=== PATIENT | female | born 1950 | race Caucasian/White ===

== ENCOUNTER 2020-01-20 20:02 | Emergency (ER) | payer MEDICARE, OTHER ==
[2020-01-20] MEDS ORDERED: MORPHINE 2 MG/ML SYR ONE (21:02)
[2020-01-20] MEDS ORDERED: ONDANSETRON 4 MG/2 ML VIAL ONE (21:02)
[2020-01-20] MEDS ORDERED: FAMOTIDINE 20 MG/2 ML VIAL IV ONE (21:07)
[2020-01-20] MEDS ORDERED: propofoL 200 MG/20 ML VIAL IV ONE (22:57)
[2020-01-20] MEDS ORDERED: NA CHLORIDE 0.9% 500 ML ONE (23:04)
[2020-01-20] MEDS ORDERED: FENTANYL CITR 100 MCG/2 ML ONE (23:20)
--- NOTE | 2020-01-21 01:17 | ER ---
Nurse's Notes [facility] Name: Emilia Javier Age: 69 yrs Sex: Female : 1950 Arrival Date: 01/20/2020 Time: 20:05 Bed 3 Private MD: Diagnosis: Displaced comminuted fracture of shaft of radius, left arm;Fracture of ulna styloid process Presentation: 01/19 20:15 Chief complaint: Spouse and/or significant other states: She was stepping off the side jb4 walk onto the ground and her ankle gave out and she fell on her wrist. 20:15 Coronavirus screen: The patient has NOT traveled to [place] in the past 14 days. Proceed jb4 with normal triage procedures. The patient has NOT had contact with known and/or suspected case of Coronavirus. Proceed with normal triage procedures. Ebola Screen: No symptoms or risks identified at this time. Initial Sepsis Screen: Does the patient meet any 2 criteria? No. Patient's initial sepsis screen is negative. Does the patient have a suspected source of infection? No. Patient's initial sepsis screen is negative. Risk Assessment: Do you want to hurt yourself or someone else? Patient reports no desire to harm self or others. 20:15 Method Of Arrival: Ambulatory jb4 20:15 Acuity: JEREMIAH 3 jb4 Historical: - Allergies: 20:15 Codeine; jb4 - Home Meds: 20:15 Lisinopril Oral [Active]; jb4 - PMHx: 20:15 None; jb4 - PSHx: 20:15 ; jb4 - Immunization history:: Adult Immunizations up to date, Flu vaccine is not up to date. - Social history:: Smoking status: Patient denies any tobacco usage or history of. Patient/guardian denies using alcohol, street drugs. - Family history:: not pertinent. - Hospitalizations: : No recent hospitalization is reported. Screenin:45 Abuse screen: Denies threats or abuse. Denies injuries from another. Nutritional rr5 screening: No deficits noted. Tuberculosis screening: No symptoms or risk factors identified. Fall Risk IV access (20 points). Assessment: 20:15 General: Appears in no apparent distress. uncomfortable, Behavior is calm, cooperative, jb4 appropriate for age. Pain: Complains of pain in left wrist Pain radiates to palmar aspect of left forearm Pain currently is 10 out of 10 on a pain scale. Quality of pain is described as throbbing. Neuro: Level of Consciousness is awake, alert, obeys commands, Oriented to person, place, time, situation. Cardiovascular: Capillary refill < 3 seconds in left fingers Patient's skin is warm and dry. Respiratory: Airway is patent Respiratory effort is even, unlabored, Respiratory pattern is regular, symmetrical. GI: No signs and/or symptoms were reported involving the gastrointestinal system. : No signs and/or symptoms were reported regarding the genitourinary system. EENT: No signs and/or symptoms were reported regarding the EENT system. Derm: Skin is intact, Skin is pink, warm \T\ dry. Musculoskeletal: Range of motion: limited in left wrist. 21:15 Reassessment: Patient appears in no apparent distress at this time. Patient and/or jb4 family updated on plan of care and expected duration. Pain level reassessed. Patient is alert, oriented x 3, equal unlabored respirations, skin warm/dry/pink. Patient states feeling better. 22:13 Reassessment: Patient appears in no apparent distress at this time. Patient and/or jb4 family updated on plan of care and expected duration. Pain level reassessed. Patient is alert, oriented x 3, equal unlabored respirations, skin warm/dry/pink. Pt reports pain is decreased but starting to come back. Conscious sedation consent form signed. 23:00 Reassessment: Patient appears in no apparent distress at this time. Patient and/or jb4 family updated on plan of care and expected duration. Pain level reassessed. Patient is alert, oriented x 3, equal unlabored respirations, skin warm/dry/pink. Conscious sedation started, see flow sheet for further documentation. 01/20 00:00 Reassessment: Patient appears in no apparent distress at this time. Patient and/or jb4 family updated on plan of care and expected duration. Pain level reassessed. Patient is alert, oriented x 3, equal unlabored respirations, skin warm/dry/pink. 01:00 Reassessment: Patient appears in no apparent distress at this time. Patient and/or jb4 family updated on plan of care and expected duration. Pain level reassessed. Patient is alert, oriented x 3, equal unlabored respirations, skin warm/dry/pink. 01:45 Reassessment: Patient appears in no apparent distress at this time. Patient and/or jb4 family updated on plan of care and expected duration. Pain level reassessed. Patient is alert, oriented x 3, equal unlabored respirations, skin warm/dry/pink. Pt reports nausea, provider notified, see MAR for orders. 01:50 Reassessment: Pt and family, verbalized understanding of d/c and follow up jb4 instructions. Assisted out of ED via wheelchair. Cap refill <3 seconds in left fingers. reports pain has decreased. Assisted to vehicle via wheelchair. Vital Signs: 01/19 20:15 BP 184 / 95; Pulse 90; Resp 16; Pulse Ox 97% on R/A; Weight 86.18 kg (R); Height 5 ft. jb4 6 in. (167.64 cm) (R); Pain 10/10; 21:00 BP 172 / 70; Pulse 90; Resp 16; Pulse Ox 96% on R/A; jb4 22:14 BP 146 / 77; Pulse 101; Resp 16; Temp 98.4(O); Pulse Ox 97% on R/A; Pain 7/10; jb4 23:00 BP 165 / 78; Pulse 107; Resp 16; Temp 98.7; Pulse Ox 96% on R/A; jb4 01/20 00:00 BP 150 / 64; Pulse 78; Resp 12; Pulse Ox 97% on R/A; jb4 01/19 20:15 Body Mass Index 30.67 (86.18 kg, 167.64 cm) jb4 01/19 23:00 Conscious sedation started, see flow sheet for further documentation. jb4 ED Course: 20:05 Patient arrived in ED. jg7 20:12 Thanh Aldridge MD is Attending Physician. rn 20:15 Arm band placed on right wrist. jb4 20:15 Patient has correct armband on for positive identification. Bed in low position. Call jb4 light in reach. Side rails up X 1. Pulse ox on. NIBP on. 20:26 Bhaskar Zapata, RN is Primary Nurse. jb4 20:29 XRAY Wrist LEFT 3 view In Process Unspecified. EDMS 20:30 Triage completed. jb4 20:40 Inserted saline lock: 22 gauge in right forearm, using aseptic technique. ,using rr5 aseptic technique. inserted by raul Pinedo. 22:14 Ice pack to injury. jb4 23:35 Assist provider with fracture care of left wrist Fracture is closed. Obvious deformity jb4 is noted. Circulation, motor and sensation is intact. Set up for procedure. Performed by Thanh Aldridge MD Reduced with physical manipulation. Immobilized with Post immobilization, circulation, motor and sensation remain intact. Patient tolerated well. 23:51 XRAY Wrist LEFT 2 view In Process Unspecified. EDMS 01/20 01:15 Les Cano MD is Referral Physician. rn 01:40 IV discontinued, intact, bleeding controlled, No redness/swelling at site. Pressure jb4 dressing applied. Administered Medications: 01/19 21:00 Drug: Zofran (Ondansetron) 4 mg Route: IVP; Site: right forearm; rr5 21:30 Follow up: Response: No adverse reaction [facility] 21:02 Drug: morphine 2 mg {Note: rass 0 .} Route: IVP; Site: right forearm; rr5 21:30 Follow up: Response: No adverse reaction; Pain is decreased; RASS: Alert and Calm (0) [facility] 21:05 Drug: Pepcid 20 mg Route: IVP; Site: right forearm; rr5 21:30 Follow up: Response: No adverse reaction [facility] 23:10 Drug: Propofol 100 mg Route: IVP; Site: right antecubital; [facility] 01/20 00:50 Follow up: Response: No adverse reaction [facility] 01/19 23:20 Drug: Propofol 100 mg Route: IVP; Site: right antecubital; [facility] 01/20 00:50 Follow up: Response: No adverse reaction [facility] 01/19 23:25 Drug: fentaNYL (PF) 50 mcg {Note: rass score -1 due to conscious sedation..} Route: jb4 IVP; Site: right antecubital; 01/20 00:50 Follow up: Response: No adverse reaction; Pain is decreased; RASS: Alert and Calm (0) [facility] 01:30 Drug: morphine 4 mg {Note: Rass score 0.} Route: IVP; Site: right antecubital; 4 01:50 Follow up: Response: No adverse reaction; Pain is decreased; RASS: Alert and Calm (0) [facility] 01:40 Drug: Zofran (Ondansetron) 4 mg Route: PO; 4 01:50 Follow up: Response: No adverse reaction jb4 Outcome: 01:16 Discharge ordered by . rn 01:45 Discharged to home via wheelchair, with family. jb4 01:45 Condition: stable 01:45 Discharge instructions given to patient, family, Instructed on discharge instructions, follow up and referral plans. medication usage, Demonstrated understanding of instructions, follow-up care, medications, Prescriptions given X 2. 01:52 Patient left the ED. mw2 Signatures: Dispatcher [employer] EDMS Thanh Aldridge MD MD rn Bryson, James RN RN jb4 Herbert Gage mw2 Raman Moura RN RN rr5 Evon Collinsg7 Corrections: (The following items were deleted from the chart) 02:30 01:40 No provider procedures requiring assistance completed. jb4 jb4
--- NOTE | 2020-01-21 01:17 | EDPHYS ---
Physician Documentation [facility] Name: Emilia Javier Age: 69 yrs Sex: Female : 1950 Arrival Date: 01/20/2020 Time: 20:05 Bed 3 Private MD: ED Physician Thanh Aldridge HPI: 01/20 00:42 This 69 yrs old Female presents to ER via Ambulatory with complaints of Arm rn Injury. 00:42 The patient or guardian complains of deformity, injury, pain. The complaints affect the rn left wrist. Onset: The symptoms/episode began/occurred just prior to arrival. Modifying factors: The symptoms are alleviated by remaining still, the symptoms are aggravated by movement, bending arm. Severity of symptoms: At their worst the symptoms were moderate, in the emergency department the symptoms are unchanged. The patient has experienced a previous episode. Reports fall, mechanical and accidental, + left wrist pain, no other injury. Last PO intake was lunch. . Historical: - Allergies: 01/19 20:15 Codeine; jb4 - Home Meds: 20:15 Lisinopril Oral [Active]; jb4 - PMHx: 20:15 None; jb4 - PSHx: 20:15 ; jb4 - Immunization history:: Adult Immunizations up to date, Flu vaccine is not up to date. - Social history:: Smoking status: Patient denies any tobacco usage or history of. Patient/guardian denies using alcohol, street drugs. - Family history:: not pertinent. - Hospitalizations: : No recent hospitalization is reported. ROS: 01/20 00:42 Constitutional: Negative for fever, chills, and weight loss, Neck: Negative for injury, rn pain, and swelling, Cardiovascular: Negative for chest pain, palpitations, and edema, Respiratory: Negative for shortness of breath, cough, wheezing, and pleuritic chest pain, Abdomen/GI: Negative for abdominal pain, nausea, vomiting, diarrhea, and constipation, Back: Negative for injury and pain, MS/Extremity: + left wrist pain and injury Skin: Negative for injury, rash, and discoloration, Neuro: Negative for headache, weakness, numbness, tingling, and seizure. Exam: 00:42 Constitutional: This is a well developed, well nourished patient who is awake, alert, rn holding left wrist close to her body Head/Face: Normocephalic, atraumatic. MS/ Extremity: Pulses equal, no cyanosis. + mild swelling to left wrist with tenderness over distal radius. NO open wounds. + ecchymosis volar wrist. Vital Signs: 01/19 20:15 BP 184 / 95; Pulse 90; Resp 16; Pulse Ox 97% on R/A; Weight 86.18 kg (R); Height 5 ft. jb4 6 in. (167.64 cm) (R); Pain 10/10; 21:00 BP 172 / 70; Pulse 90; Resp 16; Pulse Ox 96% on R/A; jb4 22:14 BP 146 / 77; Pulse 101; Resp 16; Temp 98.4(O); Pulse Ox 97% on R/A; Pain 7/10; jb4 23:00 BP 165 / 78; Pulse 107; Resp 16; Temp 98.7; Pulse Ox 96% on R/A; 4 01/20 00:00 BP 150 / 64; Pulse 78; Resp 12; Pulse Ox 97% on R/A; 4 01/19 20:15 Body Mass Index 30.67 (86.18 kg, 167.64 cm) [facility] 01/19 23:00 Conscious sedation started, see flow sheet for further documentation. [facility] Procedures: 01/20 01:13 Splinting: Splint applied to left wrist using wrist splint, applied by myself. post rn reduction film - reveals improved alignment, Examined by me, post splint application: neurovascular intact, 2+ distal pulses palpable, brisk capillary refill noted, Patient tolerated well. Reduction: of the left wrist, using traction, manipulation, Immobilized with wrist splint, Patient tolerated well. Post reduction film - reveals improved alignment. Moderate sedation: Pre-procedure assessment: the patient has been NPO 6 hour(s) prior to arrival, ASA physical classification: I - healthy, no underlying organic disease, Airway assessment: able to hyperextend neck, able to maintain airway, can open mouth without difficulty, Monitoring during procedure: cardiac cath technologist, continuous pulse oximetry, nurse at bedside at all times, Medications employed: propofol, Post-procedure assessment: the patient is not sedated, Respiratory status: even and unlabored, a reversal agent was not used. MDM: 01/19 20:12 Patient medically screened. rn 22:11 ED course: Consenting for conscious sedation for reduction of left wrist fracture.. rn 01/20 01:13 Differential diagnosis: closed fracture. Data reviewed: vital signs, nurses notes, rn radiologic studies, plain films, and as a result, I will discharge patient. Counseling: I had a detailed discussion with the patient and/or guardian regarding: the historical points, exam findings, and any diagnostic results supporting the discharge/admit diagnosis, lab results, radiology results, the need for outpatient follow up, to return to the emergency department if symptoms worsen or persist or if there are any questions or concerns that arise at home. Special discussion: I discussed with the patient/guardian in detail that at this point there is no indication for admission to the hospital. It is understood, however, that if the symptoms persist or worsen the patient needs to return immediately for re-evaluation. 01/19 20:18 Order name: XRAY Wrist LEFT 3 view rn 01/19 23:33 Order name: XRAY Wrist LEFT 2 view rn 01/19 20:18 Order name: IV Start; Complete Time: 21:13 rn 01/19 20:18 Order name: NPO; Complete Time: 20:20 rn Administered Medications: 01/19 21:00 Drug: Zofran (Ondansetron) 4 mg Route: IVP; Site: right forearm; rr5 21:30 Follow up: Response: No adverse reaction 4 21:02 Drug: morphine 2 mg {Note: rass 0 .} Route: IVP; Site: right forearm; rr5 21:30 Follow up: Response: No adverse reaction; Pain is decreased; RASS: Alert and Calm (0) [facility] 21:05 Drug: Pepcid 20 mg Route: IVP; Site: right forearm; rr5 21:30 Follow up: Response: No adverse reaction [facility] 23:10 Drug: Propofol 100 mg Route: IVP; Site: right antecubital; 4 01/20 00:50 Follow up: Response: No adverse reaction [facility] 01/19 23:20 Drug: Propofol 100 mg Route: IVP; Site: right antecubital; 4 01/20 00:50 Follow up: Response: No adverse reaction [facility] 01/19 23:25 Drug: fentaNYL (PF) 50 mcg {Note: rass score -1 due to conscious sedation..} Route: jb4 IVP; Site: right antecubital; 01/20 00:50 Follow up: Response: No adverse reaction; Pain is decreased; RASS: Alert and Calm (0) 4 01:30 Drug: morphine 4 mg {Note: Rass score 0.} Route: IVP; Site: right antecubital; jb4 01:50 Follow up: Response: No adverse reaction; Pain is decreased; RASS: Alert and Calm (0) 4 01:40 Drug: Zofran (Ondansetron) 4 mg Route: PO; 01:50 Follow up: Response: No adverse reaction 4 Disposition: 01/21/20 01:16 Discharged to Home. Impression: Displaced comminuted fracture of shaft of radius, left arm, Fracture of ulna styloid process. - Condition is Stable. - Discharge Instructions: Wrist Fracture Treated With Immobilization. - Prescriptions for Zofran ODT 4 mg Oral tablet,disintegrating - place 1 tablet by TRANSLINGUAL route every 8 hours As needed; 20 tablet. Ultram 50 mg Oral Tablet - take 1 tablet by ORAL route every 6 hours As needed; 20 tablet. - Medication Reconciliation Form, Thank You Letter, Antibiotic Education, Prescription Opioid Use form. - Follow up: Les Cano MD; When: 5 - 6 days; Reason: Recheck today's complaints, Re-evaluation by your physician. - Problem is new. - Symptoms have improved. Signatures: Dispatcher [employer] EDMS Thanh Aldridge MD MD rn Bryson, James, RN RN jb4 Herbert Gage 2 Raman Moura RN RN rr5 Corrections: (The following items were deleted from the chart) 01:52 01:16 01/21/2020 01:16 Discharged to Home. Impression: Displaced comminuted fracture of mw2 shaft of radius, left arm; Fracture of ulna styloid process. Condition is Stable. Forms are Medication Reconciliation Form, Thank You Letter, Antibiotic Education, Prescription Opioid Use. Follow up: Dr. Les Cano; When: 5 - 6 days; Reason: Recheck today's complaints, Re-evaluation by your physician. Problem is new. Symptoms have improved. rn
[2020-01-21] MEDS ORDERED: MORPHINE 4 MG/ML SYR ONE (01:28)
[2020-01-21] MEDS ORDERED: ONDANSETRON 4 MG (ODT) TAB ONE (01:45)
[2020-01-21 03:18] VITALS: TEMP 98.7
[2020-01-21 03:19] VITALS: BP 150/64; O2SAT 97
--- NOTE | 2020-01-21 09:15 | RAD REPORT ---
EXAM DESCRIPTION: RAD - Wrist Left 3 View - 01/20/2020 8:33 pm CLINICAL HISTORY: Pain;Deformity, fall with wrist pain COMPARISON: No comparisons FINDINGS: Positioning is not optimal. Patient has fracture dislocation of the distal radius. There i s dorsal and radial side dislocation of the comminuted distal radial fracture fragments. Ulna styloid is fractured and dislocated dorsally. Carpal bone fracture is not identified. Carpal bones maintain positioning to the distal radius fracture fragment. No foreign body or other soft tissue abnormality. IMPRESSION: Comminuted distal radius fracture dislocation as detailed. Ulna styloid fracture dislocation.
--- NOTE | 2020-01-21 09:16 | RAD REPORT ---
EXAM DESCRIPTION: RAD - Wrist Left 2 View - 01/20/2020 11:51 pm FINDINGS: AP and lateral views of the wrist were obtained following reduction maneuvers and placemen t of cast material. The dislocated distal radius fracture fragment and ulna styloid have been reduced to near anatomic po sition.
== END 2020-01-21 01:52 | disposition home or self-care (01) ==
LOC: ER 20:02
PROC: 0PSJXZZ Reposition Left Radius, External Approach (ICD-10-PCS; principal; 2020-01-21)
PROC: 0PSLXZZ Reposition Left Ulna, External Approach (ICD-10-PCS; 2020-01-21)
DX: S52.352A Displaced comminuted fracture of shaft of radius, left arm, initial encounter for closed fracture (principal); S52.612A Displaced fracture of left ulna styloid process, initial encounter for closed fracture; W19.XXXA Unspecified fall, initial encounter; Y93.9 Activity, unspecified; Y92.9 Unspecified place or not applicable; Z88.5 Allergy status to narcotic agent
CPT/HCPCS: 73110; 73100; 96375; 96374; 99285; 25415; J2704; J3010; J2270; J7040; J2405

== ENCOUNTER 2020-01-29 08:20 | Day surgery (SDC) | payer OTHER ==
--- OUTSIDE RECORDS SUMMARY | 2020-01-29 08:22 | XMS REPORT ---
:1950 Author Organization [employer] Care Team Providers Name Role Phone Jerome Les Provider Role Unavailable Allergies No Known Allergies Problems Problem Type Condition Code Onset Dates Condition Status Problem Benign essential HTN I10 Active Problem Essential hypertension I10 Active Problem Closed displaced fracture of S52.612D Active styloid process of left ulna with routine healing, subsequent encounter Problem Hyperglycemia R73.9 Active Problem Other insomnia not due to a F51.09 Active substance or known physiological condition Problem GERD without esophagitis K21.9 Active Problem Closed fracture of distal end of S52.502D Active left radius with routine healing, unspecified fracture morphology, subsequent encounter Problem Left hip pain M25.552 Active Medications No Known Medications Results No Known Results Summary Purpose [employer] Submission
--- OUTSIDE RECORDS SUMMARY | 2020-01-29 08:22 | XMS REPORT ---
:1950 Author Organization [employer] Care Team Providers Name Role Phone Juan Joleen Provider Role Unavailable Allergies, Adverse Reactions, Alerts Substance Reaction Event Type codine Info Not Available Drug Allergy Hydrocodone-Acetaminophen vomiting Drug Allergy Demerol vomiting Drug Allergy Problems Problem Type Condition Code Onset Dates Condition Status Assessment Closed fracture of distal end of S52.502D Active left radius with routine healing, unspecified fracture morphology, subsequent encounter Problem Benign essential HTN I10 Active Assessment Hyperglycemia R73.9 Active Assessment Essential hypertension I10 Active Assessment Closed displaced fracture of S52.612D Active styloid process of left ulna with routine healing, subsequent encounter Problem Essential hypertension I10 Active Problem Closed [...] Problem Left hip pain M25.552 Active Medications Medication Code Code Instructions Start End Date Status Dosage System Date Lisinopril-Hyd [facility] 65047924772 20-12.5 MG Active 1 tablet rochlorothiazi Orally Once de daily Ibuprofen [facility] 50054127503 800 Active TAKE 1 TABLET BY MOUTH THREE TIMES DAILY( EVERY EIGHT HOURS) WITH FOOD OR MILK NEEDED Results Name Result Date Reference Range Unit Abnormality Flag HEMOGLOBIN A1C ----A1C 5.6% [id number] Summary Purpose [employer] Submission
--- OUTSIDE RECORDS SUMMARY | 2020-01-29 08:22 | XMS REPORT ---
:1950 Author Organization [employer] Care Team Providers Name Role Phone Jermoe Les Provider Role Unavailable Allergies No Known [...]
--- OUTSIDE RECORDS SUMMARY | 2020-01-29 08:22 | XMS REPORT ---
:1950 Author Organization [employer] Care Team Providers Name Role Phone Jerome Les Provider Role Unavailable Allergies No Known Allergies Problems Problem Type Condition Code Onset Dates Condition Status Problem Other insomnia not due to a F51.09 Active substance or known physiological condition Problem GERD without esophagitis K21.9 Active Problem Left hip pain M25.552 Active Problem Benign essential HTN I10 Active Medications No Known Medications Results No Known Results Summary Purpose [employer] Submission
[2020-01-29] MEDS ORDERED: Ringers Lactate 1,000 ML IV ONE (08:45)
[2020-01-29] MEDS ORDERED: SCOPOLAMINE HYDROBROMIDE PATCH TD ONE (08:45)
[2020-01-29] MEDS ORDERED: CEFAZOLIN/SWI 1gm 1 GM/10 ML SYR ONE (08:47)
[2020-01-29] MEDS ORDERED: dexAMETHasone 10 MG/ML VIAL ONE (09:13)
[2020-01-29] MEDS ORDERED: ROPLVACAINE HCL 40 ML ONE (09:13)
[2020-01-29] MEDS: CEFAZOLIN/SWI 2gm 2 GM/20 ML SYR ONE ×2 (10:25→11:50)
[2020-01-29] MEDS ORDERED: FENTANYL CITR 100 MCG/2 ML ONE (10:27)
[2020-01-29] MEDS ORDERED: MIDAZOLAM HCL 2 MG/2 ML INJ ONE (10:27)
[2020-01-29] MEDS ORDERED: propofoL 200 MG/20 ML VIAL IV ONE (10:47)
[2020-01-29] MEDS ORDERED: LIDOCAINE 2% MPF 5 ML VIAL ONE (10:47)
[2020-01-29] MEDS ORDERED: ONDANSETRON 4 MG/2 ML VIAL ONE (11:43)
[2020-01-29] MEDS ORDERED: EPHEDRINE SULF 50 MG/ML VIAL ONE (12:01)
--- NOTE | 2020-01-29 13:24 | RAD REPORT ---
EXAM DESCRIPTION: RAD - Wrist Left 2 View - 01/29/2020 1:16 pm CLINICAL HISTORY: ORIF WITH DOC. BECKETT Pain COMPARISON: Wrist Left 2 View dated 01/20/2020; Wrist Left 3 View dated 01/20/2020 FINDINGS: Fluoroscopy time 0.7 minutes.
--- NOTE | 2020-01-29 13:37 | P.BOP ---
Preoperative diagnosis: left 3 part intraarticular distal radius fracture Postoperative diagnosis: same Primary procedure: ORIF left 3 part intraarticular distal radius fracture [employer] Manager: NONE,NONE Estimated blood loss: 10 cc Specimen: none Findings: see dictation Anesthesia: General Complications: None Implants: 3 hold narrow Acumed distal radius locking plate Fluids & blood products: per anesthesia record; TT: 60 mins @ 250 mmHg Transferred to: Recovery Room Condition: Good
[2020-01-29 13:52] VITALS: TEMP 98.1
--- NOTE | 2020-01-29 14:07 | RAD REPORT ---
EXAM DESCRIPTION: RAD - Wrist Left 2 View - 01/29/2020 1:57 pm CLINICAL HISTORY: S/P ORIF L DISTAL RADIUS Pain COMPARISON: Wrist Left 2 View dated 01/29/2020; Wrist Left 2 View dated 01/20/2020 FINDINGS: Distal radial plate with multiple screws noted. No unexpected immediate postoperative find ing. Bone detail is mildly limited by cast material.
[2020-01-29] MEDS ORDERED: IBUPROFEN 400 MG TAB ONE (14:11)
[2020-01-29 14:23] VITALS: BP 125/60; O2SAT 95
--- NOTE | 2020-01-30 05:48 | OP ---
Date of Procedure: 01/29/2020 Surgeon: eLs Cano MD Preoperative Diagnosis: Left intraarticular distal radius fracture. Postoperative Diagnosis: Left intraarticular distal radius fracture. Procedure Performed: Open reduction and internal fixation, left 3-part intraarticular distal radius fracture. Anesthesia: General LMA. Fluids: Per Anesthesia record. Estimated Blood Loss: Less than 10 cc. Tourniquet Time: 60 minutes at 250 mmHg. Complications: None. Implants: Acumed 3 hole narrow distal radius locking plate. Indications For Procedure: Emilia is a 69-year-old female who presented to my clinic after sustaining a fall onto an outstretched left hand. X-rays demonstrated a left intraarticular distal radius frac ture. She underwent a closed reduction and internal fixation. She followed up in my clinic within a week and had repeat x-rays which demonstrated significant displacement and angulation of her fractur e. I discussed with the patient at length risks and benefits associated with operative and nonoperat shane treatment. Given her significant displacement and intraarticular fracture pattern we elected to proceed with operative treatment. Description Of Procedure: After informed consent was obtained, the patient was identified in the pre operative holding area. The left upper extremity was marked. Patient underwent a left interscalene block to her left upper extremity without complication performed by anesthesia in the PACU prior to [facility]. She was then transferred to the operating room, transferred to the operating table in supine fashion and placed under general LMA anesthesia. The left upper extremity was then prepped and drap ed in the usual sterile fashion. A time-out was initiated. The correct patient and procedure were c onfirmed and identified. The patient did receive preoperative prophylactic antibiotics. The left up per extremity was exsanguinated using an Esmarch and the tourniquet was inflated to 250 mmHg. Approx imately a 10 cm longitudinal incision was made over the FCR tendon consistent with a volar Aaron appmethodist jennie edmundson. Dissection was taken down with the FCR tendon sheath, which was split and divided proximally a nd distally in line with the incision. The FCR tendon was then retracted radially. The floor of the tendon sheath was then opened using a 15 blade and released proximally and distally. Blunt dissecti on was then taken down to the pronator quadratus, which was identified on the radial aspect of the di stal radius, it was elevated off the distal radius using a 15 blade and a wood handle elevator. The fracture was identified. It was irrigated with normal saline. Traction was then placed on the fract ure and the fracture was reduced and pinned to preliminary hold reduction. Fluoroscopy was used to e nsure proper reduction of the fracture. A 3 hole narrow Acumed distal radius locking plate was then placed over the fracture and distal radius. Proper position of the plate was then confirmed using fl uoroscopy in both AP and lateral views. It was fixed to the shaft using a 3.5 cortical screw. It wa s then fixed to the distal fracture segment using a cortical screw in a bicortical fashion to help br ing the fracture to the plate. Four remaining distal screws were placed within the distal fragment a nd unicortical with locking screws. The fracture was to be have intraarticular split which was well reduced. After placement of the locking screws, there was overall good reduction of the fracture not ed on fluoroscopy. Two remaining proximal shaft screws were placed in bicortical fashion using 3.5 c ortical screws. Final x-rays were taken to ensure proper placement of the plate, proper reduction of the fracture. The wound was then irrigated thoroughly with normal saline. Subcutaneous tissue was approximated using a 2-0 Vicryl. Skin was approximated using a 3-0 nylon. Sterile dressings were pl aced. Patient was placed in a sugar-tong splint, awakened, and transferred to PACU in stable conditi on. Postoperative Plan: She will be nonweightbearing of her left upper extremity. She will follow up in 2 weeks for wound check. She will be placed in a removable wrist brace at that point to begin with gentle [id number] exercises. ADRIAN/DAVIDL Voice ID: [id number] Report ID: [id number]
== END 2020-01-29 14:50 | disposition home or self-care (01) ==
LOC: OR 08:20
PROVIDERS: ATTEND Orthopaedic Surgery Sports Medicine
PROC: 0PSJ04Z Reposition Left Radius with Internal Fixation Device, Open Approach (ICD-10-PCS; principal; 2020-01-29 10:30)
DX: S52.572A Other intraarticular fracture of lower end of left radius, initial encounter for closed fracture (principal); I10 Essential (primary) hypertension; K21.9 Gastro-esophageal reflux disease without esophagitis; Z88.6 Allergy status to analgesic agent; Z82.3 Family history of stroke; Z82.49 Family history of ischemic heart disease and other diseases of the circulatory system
CPT/HCPCS: 73100 ×2; 25609; J2704; J2250; J3010; J1100; J2795; J0690 ×2; J7120; J2405